=== PATIENT | male | born 1955 | race Caucasian/White ===

== ENCOUNTER 2018-03-19 10:32 | Emergency (ER) | payer OTHER ==
[2018-03-19] MEDS: ONDANSETRON 4 MG INJ IV (11:19)
[2018-03-19] MEDS: HYDROmorphONE 2 MG/ML SYG IV (11:20)
== END 2018-03-19 13:33 | disposition home or self-care (01) ==
LOC: E/R 13:33
DX: S01.01XA Laceration without foreign body of scalp, initial encounter (principal); S16.1XXA Strain of muscle, fascia and tendon at neck level, initial encounter; R07.9 Chest pain, unspecified; W20.8XXA Other cause of strike by thrown, projected or falling object, initial encounter; Y92.9 Unspecified place or not applicable
CPT/HCPCS: 12004; 70450; 71045; 72125; 96374; 96375; 99285-25

== ENCOUNTER 2018-03-26 11:30 | Emergency (ER) | payer SELFPAY, OTHER, MEDICAID | END 2018-03-26 12:02 | disposition home or self-care (01) | LOC: FTE 11:30 | DX: Z48.02 Encounter for removal of sutures (principal) | CPT/HCPCS: 99281 ==

== ENCOUNTER 2019-04-29 09:56 | Emergency (ER) | payer OTHER ==
[2019-04-29 10:19] LABS: ADD MAN DIFF? NO
[2019-04-29] MEDS: SOD CHLORIDE 0.9% 500 ML IV (10:19)
[2019-04-29] MEDS: BELLADONNA/PHENOBARBITAL TAB PO (10:19)
[2019-04-29] MEDS: LIDOCAINE/MYLANTA 40 ML BTL PO (10:19)
[2019-04-29] MEDS: FAMOTIDINE 20 MG INJ IV (10:19)
[2019-04-29] MEDS: ONDANSETRON 4 MG INJ IV (10:19)
[2019-04-29 10:25] LABS: BASOPHILS % 0.3 % (0.0-2.0); EOSINOPHILS % 0.3 % (0.0-7.0); HEMOGLOBIN 15.4 g/dl (14.0-18.0); LYMPHOCYTES # 1.2 10^3/ul (0.8-2.9); LYMPHOCYTES % 11.9 % (15.0-51.0); MEAN CORPUSCULAR HEMOGLOBIN 31.7 pg (29.0-33.0); MEAN CORPUSCULAR VOLUME 90.5 fl (82.0-101.0); MEAN PLATELET VOLUME 12.2 fl (7.4-10.4); MONOCYTE # 0.5 10^3/ul (0.3-0.9); MONOCYTES % 4.9 % (0.0-11.0); NEUTROPHIL # 8.3 10^3/ul (1.6-7.5); NEUTROPHILS % 82.1 % (39.0-77.0); PLATELET COUNT 125 10^3/UL (140-415); RED BLOOD COUNT 4.86 10^6/ul (4.70-6.10); RED CELL DISTRIBUTION WIDTH 11.9 % (11.5-14.5)
[2019-04-29 10:25] LABS: WHITE BLOOD COUNT 10.1 10^3/ul (4.8-10.8)
[2019-04-29 10:42] LABS: ALANINE AMINOTRANSFERASE 26 IU/L (13-69); ALBUMIN 4.5 g/dl (3.3-4.9); ALBUMIN/GLOBULIN RATIO 1.32; ALKALINE PHOSPHATASE 103 IU/L (42-121); ANION GAP 13 (5-13); ASPARTATE AMINO TRANSFERASE 25 IU/L (15-46); BILIRUBIN,INDIRECT 0.9 mg/dl (0-1.1); BILIRUBIN,TOTAL 0.9 mg/dl (0.2-1.3); BLOOD UREA NITROGEN 13 mg/dl (7-20); CALCIUM 9.6 mg/dl (8.4-10.2); CARBON DIOXIDE 21 mmol/L (21-31); CHLORIDE 104 mmol/L (97-110); CREATININE 0.65 mg/dl (0.61-1.24); Estimated GFR > 60 mL/min (>60); GLUCOSE 330 mg/dl (70-220); LIPASE 159 U/L (23-300); SODIUM 138 mmol/L (135-144); TOTAL PROTEIN 7.9 g/dl (6.1-8.1)
[2019-04-29 10:45] LABS: POTASSIUM 3.8 mmol/L (3.5-5.1)
[2019-04-29 10:51] LABS: ADD UMIC NO; UR ASCORBIC ACID NEGATIVE (NEGATIVE); UR BILIRUBIN (Dip) NEGATIVE (NEGATIVE); UR BLOOD (Dip) NEGATIVE (NEGATIVE); UR CLARITY CLEAR (CLEAR); UR COLOR YELLOW (YELLOW); UR GLUCOSE (Dip) 3+ mg/dL (NEGATIVE); UR KETONES (Dip) 1+ mg/dL (NEGATIVE); UR LEUKOCYTE ESTERASE (Dip) NEGATIVE Leu/ul (NEGATIVE); UR NITRITE (Dip) NEGATIVE (NEGATIVE); UR SPECIFIC GRAVITY (Dip) 1.039 (1.003-1.030); UR TOTAL PROTEIN (Dip) NEGATIVE (NEGATIVE); UR UROBILINOGEN (Dip) NEGATIVE (NEGATIVE)
[2019-04-29] MEDS: morphine 4 MG/ML VIAL IV (11:37)
[2019-04-29] MEDS: HYDROCODONE/APAP (10/325) TAB PO (13:25)
== END 2019-04-29 13:28 | disposition home or self-care (01) ==
LOC: E/R 09:56
DX: K80.70 Calculus of gallbladder and bile duct without cholecystitis without obstruction (principal); E11.9 Type 2 diabetes mellitus without complications; E03.9 Hypothyroidism, unspecified
CPT/HCPCS: 36415; 71045; 76705; 80053; 81003; 83690; 85025; 96361; 96374; 96375; 99285-25